=== PATIENT | female | born 1990 | race Caucasian/White ===

== ENCOUNTER 2016-10-14 18:19 | Emergency (ER) | payer MEDICAID ==
[2016-10-14 19:19] VITALS: BP 117/74
--- NOTE | 2016-10-14 20:43 | ERNOTE ---
ENT HPI Date of Service: 10/14/16 Presenting Symptoms: other - Sore throat Time Seen by Provider: 10/14/16 20:43 Source: patient Exam Limitations: no limitations - Immun/Allergies/Home Medications Immunizations: IMMUNIZATION HX Immunizations Up to Date Yes History of Influenza Vaccine Yes Allergies/Adverse Reactions: Allergies Allergy/AdvReac Type Severity Reaction Status Date / Time codeine AdvReac Severe Vomiting Verified 10/14/16 19:19 Home Medications: HOME MEDICATIONS Ibuprofen [Motrin] 800 mg PO Q8H PRN #60 tab 10/14/16 [Last Taken Unknown] - History of Present Illness Date (Duration): 10/14/16 Severity: Present: moderate ENT Location: Present: throat Associated Symptoms - ENT: Reports: malaise, sore throat. Denies: cough, drooling, nasal congestion/drainage, facial pain/swelling, jaw swelling, ear drainage, headache Review of Systems - Review of Systems Constitutional: Present: See HPI EYE: Present: no symptoms reported ENT: Present: See HPI, sore throat Respiratory: Present: no symptoms reported Cardiology: Present: no symptoms reported Gastrointestinal/Abdominal: Present: no symptoms reported Genitourinary: Present: no symptoms reported Musculoskeletal: Present: no symptoms reported Skin: Present: no symptoms reported Neurological: Present: no symptoms reported Endocrine: Present: no symptoms reported Hematologic/Lymphatic: Present: no symptoms reported Psych: Present: no symptoms reported All Other Systems: All systems neg except as marked - Patient's Past Medical History Patient History - Medical: No pertinent hx Patient History - Cardiac/Respiratory: No pertinent hx Patient History - Cancer: No Hx of Cancer Patient History - Surgical Procedures: No surgical history Patient History - Other: None LMP (females 10-50): 2 months - Social History Living Situations: home Psych History: No pertinent hx Alcohol Use: occasionally Drug Use: none - Immunizations Immunizations Up to Date: Yes History of Influenza Vaccine: Yes Physical Exam - Physical Exam General Appearance: Present: wd/wn, alert, no apparent distress Eye Exam: Normal inspection: bilateral, PERRL: bilateral, EOMI: bilateral Ears, Nose, Throat: Present: pharyngeal erythema, tonsillar swelling. Absent: tonsillar exudate Neck: Present: normal inspection, nontender. Absent: lymphadenopathy (R), lymphadenopathy (L) Respiratory: Present: no respiratory distress, normal breath sounds, no accessory muscle use, chest nontender, lungs clear Cardiovascular/Chest: Present: regular rate, rhythm, no murmur Neurological Exam: Present: alert, oriented Skin Exam: Present: normal color, warm/dry. Absent: skin rash ED Progress - Results and Orders Patient's Lab Results:: I have reviewed the patient's lab results. - Vital Signs Patient's Vital Signs:: I have reviewed the patient's vital signs. Vital Signs: Vital Signs 10/14/16 19:17 Temperature 36.3 C L Pulse Rate 99 Respiratory 16 Rate Blood Pressure 117/74 O2 Sat by Pulse 97 Oximetry - Progress/Reassessment Chief Complaint: Sore Throat Progress:: Improved Departure Clinical Impression: Strep tonsillitis - Departure Disposition: Home self-care Condition: Good Instructions: Tonsillitis, [id number] Prescriptions: Ibuprofen [Motrin] 800 mg PO Q8H PRN #60 tab PRN Reason: Fever and Pain
[2016-10-14] MEDS ORDERED: DEXAMETHASONE SOD PHOSPHATE 10 MG/ML VIAL IM ONE (20:52)
[2016-10-14] MEDS ORDERED: KETOROLAC TROMETHAMINE 60 MG/2 ML VIAL IM ONE ×2 (20:52→20:56)
[2016-10-14] MEDS ORDERED: PENICILLIN G BENZATHINE 2 ML SYRG IM ONE ×2 (20:52→20:57)
[2016-10-14] MEDS ORDERED: DEXAMETHASONE SOD PHOSPHATE 10 MG/ML VIAL ONE (20:56)
== END 2016-10-14 21:38 | disposition home or self-care (01) ==
LOC: ER 18:19
DX: J03.00 Acute streptococcal tonsillitis, unspecified (principal)